=== PATIENT | female | born 1970 | race Caucasian/White ===

== ENCOUNTER 2018-06-08 21:07 | Emergency (ER) | payer MEDICAID ==
[2018-06-08 21:23] VITALS: BP 112/73
== END 2018-06-09 01:30 | disposition left against medical advice (07) ==
LOC: ER 21:07
DX: Z53.21 Procedure and treatment not carried out due to patient leaving prior to being seen by health care provider (principal)

== ENCOUNTER → 2018-06-09 | Outpatient (CLI) | payer MEDICAID ==
--- NOTE | 2018-06-09 13:41 | RADIOLOGY REPORT (SQ) ---
EXAM DESCRIPTION: RIBS RIGHT W/PA CHEST COMPLETED DATE/TIME: 06/09/2018 12:04 pm REASON FOR STUDY: PLEURODYNIA R07.81 PLEURODYNIA COMPARISON: 2014 TECHNIQUE: Frontal view of the chest and additional views of the right ribs acquired. NUMBER OF VIEWS: Three view. LIMITATIONS: None. FINDINGS: FRONTAL CXR: Wedge-shaped opacity arising from the right hilum extending peripherally. Le ft lung is clear. RIBS: No obvious rib pathology. No displaced fractures. OTHER: No other significant finding. IMPRESSION: Wedge-shaped opacity arising from the right hilum. Infection versus tumor. COMMENT: SITE OF TRAUMA/COMPLAINT MARKED/STAMP COMPLETED: Yes TECHNICAL DOCUMENTATION: JOB ID: [id number] [employer]- All Rights Reserved Reading location - IP/workstation name: [email or web address]
== END ==
LOC: OD 11:40
PROVIDERS: ATTEND Nurse Practitioner Family
DX: R07.81 Pleurodynia (principal)

== ENCOUNTER 2019-05-30 00:49 | Emergency (ER) | payer MEDICAID ==
[2019-05-30 01:33] LABS: ABSOLUTE EOSINOPHILS # (AUTO) 0.1 10^3/uL (0.0-0.6); ABSOLUTE LYMPHOCYTES (AUTO) 0.7 10^3/uL (0.5-4.7); ABSOLUTE MONOCYTES (AUTO) 0.5 10^3/uL (0.1-1.4); ABSOLUTE NEUT (AUTO) 10.4 10^3/uL (1.7-8.2); BASOPHILS % (AUTO) 0.2 % (0-2); EOSINOPHILS % (AUTO) 0.7 % (0-6); HEMATOCRIT 39.6 % (36.0-47.0); HEMOGLOBIN 13.3 g/dL (12.0-15.5); LYMPHOCYTES % (AUTO) 6.1 % (13-45); MEAN CORPUSCULAR HEMOGLOBIN 28.5 pg (27.0-33.4); MEAN CORPUSCULAR HGB CONC 33.6 g/dL (32.0-36.0); MEAN CORPUSCULAR VOLUME 85 fl (80-97); MONOCYTES % (AUTO) 4.3 % (3-13); PLATELET COUNT 184 10^3/uL (150-450); RED BLOOD COUNT 4.67 10^6/uL (3.72-5.28); RED CELL DISTRIBUTION WIDTH 15.7 % (11.5-14.0); SEGMENTED NEUTROPHILS % (AUTO) 88.7 % (42-78); TOTAL CELLS COUNTED % (AUTO) 100 %; WHITE BLOOD COUNT 11.7 10^3/uL (4.0-10.5)
[2019-05-30] MEDS ORDERED: ONDANSETRON HCL INJ/PF 4 MG/2 ML SDV IV ONE (02:03)
[2019-05-30 02:24] LABS: A TYPE INFLUENZA AG POSITIVE (NEGATIVE); B INFLUENZA AG POSITIVE (NEGATIVE)
[2019-05-30 02:31] LABS: ALBUMIN 3.8 g/dL (3.5-5.0); ALKALINE PHOSPHATASE 113 U/L (38-126); ANION GAP 8 (5-19); ASPARTATE AMINO TRANSFERASE 31 U/L (14-36); BILIRUBIN,DIRECT 0.4 mg/dL (0.0-0.4); BILIRUBIN,TOTAL 0.5 mg/dL (0.2-1.3); BLOOD UREA NITROGEN 20 mg/dL (7-20); CALCIUM 9.2 mg/dL (8.4-10.2); CARBON DIOXIDE 28 mmol/L (22-30); CHLORIDE 104 mmol/L (98-107); GLUCOSE 111 mg/dL (75-110); POTASSIUM 3.8 mmol/L (3.6-5.0); TOTAL PROTEIN 7.2 g/dL (6.3-8.2)
--- NOTE | 2019-05-30 03:40 | ER Document Report ---
ED General - General Chief Complaint: Nausea/Vomiting/Diarrhea Stated Complaint: VOMITING Time Seen by Provider: 05/30/19 03:39 Primary Care Provider: GINO FIGUEROA MD [Primary Care Provider] - Follow up as needed TRAVEL OUTSIDE OF THE [place] IN LAST 30 DAYS: No - Related Data Allergies/Adverse Reactions: aspirin [Aspirin] Adverse Reaction (Verified 08/08/14 22:06) ibuprofen Adverse Reaction (Verified 08/08/14 22:06) Past Medical History - Social History Smoking Status: Current Every Day Smoker Family History: Reviewed & Not Pertinent Patient has suicidal ideation: No Patient has homicidal ideation: No Musculoskeletal Medical History: Reports Hx Fibromyalgia Past Surgical History: Reports: Hx Cholecystectomy, Hx Gastric Bypass Surgery, Hx Orthopedic Surgery Physical Exam - Vital signs Vitals: Temp Pulse Resp BP Pulse Ox 98.0 F 95 20 130/78 H 98 05/30/19 00:57 05/30/19 00:57 05/30/19 00:57 05/30/19 00:57 05/30/19 00:57 Course - Vital Signs Vital signs: Temp Pulse Resp BP Pulse Ox 98.0 F 95 20 130/78 H 98 05/30/19 00:57 05/30/19 00:57 05/30/19 00:57 05/30/19 00:57 05/30/19 00:57 - Laboratory Result Diagrams: 05/30/19 01:10 05/30/19 01:10 Laboratory results interpreted by me: 05/30/19 05/30/19 01:10 01:10 WBC 11.7 H RDW 15.7 H Lymph % (Auto) 6.1 L Absolute Neuts (auto) 10.4 H Seg Neutrophils % 88.7 H Glucose 111 H Discharge - Discharge Referrals: GINO FIGUEROA MD [Primary Care Provider] - Follow up as needed
--- NOTE | 2019-05-30 03:47 | ER Document Report ---
ED General - General Chief Complaint: Nausea/Vomiting/Diarrhea Stated Complaint: VOMITING Time Seen by Provider: 05/30/19 03:39 Primary Care Provider: GINO FIGUEROA MD [Primary Care Provider] - Follow up as needed Notes: Patient is a 49-year-old female who presents to the emergency department with a chief complaint of nausea, vomiting, and diarrhea. Patient states that she also has some rhinorrhea. Patient has a history of gastric bypass surgery in 1998. She also has history of viral meningitis. Denies a headache, or any other symptoms. TRAVEL OUTSIDE OF THE [place] IN LAST 30 DAYS: No - Related Data Allergies/Adverse Reactions: aspirin [Aspirin] Adverse Reaction (Verified 08/08/14 22:06) ibuprofen Adverse Reaction (Verified 08/08/14 22:06) Past Medical History - Social History Smoking Status: Current Every Day Smoker Family History: Reviewed & Not Pertinent Patient has suicidal ideation: No Patient has homicidal ideation: No Musculoskeletal Medical History: Reports Hx Fibromyalgia Past Surgical History: Reports: Hx Cholecystectomy, Hx Gastric Bypass Surgery, Hx Orthopedic Surgery Review of Systems - Review of Systems Notes: REVIEW OF SYSTEMS: CONSTITUTIONAL : Denies recent illness. Denies recent unintentional weight loss. Denies fever, chills, or sweats. EENT: HPI. CARDIOVASCULAR: Denies chest pain. RESPIRATORY: Denies shortness of breath, cough, congestion, difficulty breathing, or wheezing. GASTROINTESTINAL: See HPI. GENITOURINARY: Denies difficulty urinating, burning, blood in urine, urgency or frequency. MUSCULOSKELETAL: Denies neck and back pain. Denies joint pain or swelling. SKIN: Denies rash, itchiness, or lesions HEMATOLOGIC : Denies easy bruising or bleeding. LYMPHATIC: Denies swollen, painful, enlarged glands. NEUROLOGICAL: Denies no numbness or tingling denies weakness. Denies headache. Denies altered mental status. Denies alteration in speech. PSYCHIATRIC: Denies stress, anxiety, alteration in sleep patterns, or dep ression. All other systems reviewed and negative. Physical Exam - Vital signs Vitals: Temp Pulse Resp BP Pulse Ox 98.0 F 95 20 130/78 H 98 05/30/19 00:57 05/30/19 00:57 05/30/19 00:57 05/30/19 00:57 05/30/19 00:57 - Notes Notes: PHYSICAL EXAMINATION: GENERAL: Appears chronically ill, thin, no acute distress. HEAD: Normocephalic, atraumatic. EYES: PERRL, conjunctiva normal, all extraocular movements intact, sclera nonicteric ENT: Moist mucous membranes. NECK: Supple, no noticeable swelling, redness, rash. Normal range of motion. LUNGS: Equal breath sounds bilaterally and clear to auscultation. No wheezes rales or rhonchi. CARDIOVASCULAR: S1-S2, regular rate, regular rhythm. Radial pulses 2+, normal. ABDOMEN: Normoactive bowel sounds. Soft, nontender, no guarding, no rebound tenderness, and no masses palpated. EXTREMITIES: Normal strength and range of motion, no pitting or edema. No cyanosis. NEUROLOGICAL: Moves all extremities upon command. Strength 5/5 in all extremities. PSYCH: Normal mood, normal affect. SKIN: Warm, dry. No rash, lesions, ulcerations noted. Normal skin turgor. Course - Re-evaluation Re-evalutation: 05/30/19 05:41 Hematology shows a mild leukocytosis with a white blood cell count of 11,700. Chemistries are unremarkable. Lipase is normal. Patient is positive for influenza A and influenza B. Awaiting urinalysis 05/30/19 05:56 Urinalysis is unremarkable. Patient will be sent home with Yuriy to help with her nausea and vomiting. Patient presses gratefulness for her care. Follow-up precautions were given. Verbal discharge instructions were given to the patient. They verbalized understanding. They are stable for discharge. - Vital Signs Vital signs: Temp Pulse Resp BP Pulse Ox 99.4 F 95 20 126/76 H 93 05/30/19 05:08 05/30/19 05:08 05/30/19 05:08 05/30/19 05:08 05/30/19 05:08 - Laboratory Result Diagrams: 05/30/19 01:10 05/30/19 01:10 Laboratory results interpreted by me: 05/30/19 05/30/19 05/30/19 01:10 01:10 05:00 WBC 11.7 H RDW 15.7 H Lymph % (Auto) 6.1 L Absolute Neuts (auto) 10.4 H Seg Neutrophils % 88.7 H Glucose 111 H Urine Ketones TRACE H Urine Blood SMALL H Urine Urobilinogen 4.0 H Discharge - Discharge Clinical Impression: Influenza A, Influenza B Nausea and vomiting Qualifiers: Vomiting type: unspecified Vomiting Intractability: non-intractable Qualified Code(s): R11.2 - Nausea with vomiting, unspecified Diarrhea Qualifiers: Diarrhea type: unspecified type Qualified Code(s): R19.7 - Diarrhea, unspecified Condition: Stable Disposition: HOME, SELF-CARE Additional Instructions: You have influenza. There is no treatment that is effective for this diagnosis other than supportive care at home. This includes drinking plenty of fluids, using Tylenol or ibuprofen as needed for fever and discomfort, and Zofran as needed for nausea and vomiting. Please follow closely with you primary care physician the next 1-2 days regarding this diagnosis. Return to the emergency department immediately if you began to have persistent vomiting prevents you from being able to keep fluids down for more than 12 hours, you pass out, you began having difficulty breathing, you become confused, or you have any other symptoms that are worrisome to you. Prescriptions: Ondansetron [Zofran Odt 4 mg Tablet] 1 - 2 tab PO Q4H PRN #15 tab.rapdis PRN Reason: For Nausea/Vomiting Referrals: [facility] [Provider Group] - Follow up in 3-5 days
[2019-05-30] MEDS ORDERED: NORMAL SALINE 1000 ML 1,000 ML IV ONE (04:02)
[2019-05-30] MEDS ORDERED: ACETAMINOPHEN 325 MG TABLET PO ONE (05:11)
[2019-05-30 05:26] VITALS: BP 126/76
[2019-05-30 05:47] LABS: APPEARANCE,URINE CLEAR; BILIRUBIN,URINE NEGATIVE (NEGATIVE); COLOR,URINE YELLOW; GLUCOSE, URINE NEGATIVE (NEGATIVE); KETONES,URINE TRACE mg/dL (NEGATIVE); LEUKOCYTE ESTERASE,URINE NEGATIVE (NEGATIVE); NITRITE,URINE NEGATIVE (NEGATIVE); PROTEIN,URINE NEGATIVE (NEGATIVE)
[2019-05-30] MEDS ORDERED: ONDANSETRON ODT 4 MG TAB (6 TAB/ER DISP) PO PRN (05:58)
== END 2019-05-30 06:30 | disposition home or self-care (01) ==
LOC: ER 00:49
DX: J11.1 Influenza due to unidentified influenza virus with other respiratory manifestations (principal); R11.2 Nausea with vomiting, unspecified; R19.7 Diarrhea, unspecified; Z88.6 Allergy status to analgesic agent; F17.200 Nicotine dependence, unspecified, uncomplicated; Z90.49 Acquired absence of other specified parts of digestive tract; Z98.84 Bariatric surgery status
CPT/HCPCS: 99284; 96361; 96374; 36415; 83690; 85025; 80053; 81001; 87804; J3490; J2405; J7030

== ENCOUNTER 2019-08-21 19:26 | Emergency (ER) | payer MEDICAID ==
--- NOTE | 2019-08-21 19:47 | ER Document Report ---
ED Medical Screen (RME) - General Chief Complaint: Finger Injury Stated Complaint: FINGER INJURY Primary Care Provider: GINO FIGUEROA MD [Primary Care Provider] - Follow up as needed Notes: Patient is a 49-year-old white female who reports to the ER today with a chief complaint of right finger and hand pain after a fall that occurred this morning around 8:30 AM. She states she tried to wait it out but she started to notice some bruising to the right index finger and palm of the right hand proximally. States her said you better get to the ER to get checked out. Denies any other pain, complaints or concerns at this time. No head or neck injury. No loss of consciousness. I have treated and performed a rapid initial assessment of this patient. A comprehensive ED assessment and evaluation of the patient, analysis of test r esults and completion of medical decision making process will be conducted by additional ED providers. PHYSICAL EXAMINATION: GENERAL: Well-appearing, well-nourished and in no acute distress. A&Ox4. Answers questions appropriately. TRAVEL OUTSIDE OF THE [place] IN LAST 30 DAYS: No - Related Data Allergies/Adverse Reactions: aspirin [Aspirin] Adverse Reaction (Verified 08/08/14 22:06) ibuprofen Adverse Reaction (Verified 08/08/14 22:06) Past Medical History Musculoskeltal Medical History: Reports Hx Fibromyalgia Past Surgical History: Reports: Hx Cholecystectomy, Hx Gastric Bypass Surgery, Hx Orthopedic Surgery Physical Exam - Vital signs Vitals: Temp Pulse Resp BP Pulse Ox 97.7 F 90 22 H 105/72 98 08/21/19 19:34 08/21/19 19:34 08/21/19 19:34 08/21/19 19:34 08/21/19 19:34 Course - Vital Signs Vital signs: Temp Pulse Resp BP Pulse Ox 97.7 F 90 22 H 105/72 98 08/21/19 19:34 08/21/19 19:34 08/21/19 19:34 08/21/19 19:34 08/21/19 19:34 Doctor's Discharge - Discharge Referrals: GINO FIGUEROA MD [Primary Care Provider] - Follow up as needed
--- NOTE | 2019-08-21 21:25 | RADIOLOGY REPORT (SQ) ---
EXAM DESCRIPTION: XR HAND 3 OR MORE VIEWS COMPLETED DATE/TME: 08/21/2019 19:46 CLINICAL HISTORY: 49 years ,Female fall trauma COMPARISON: None. TECHNIQUE: RIGHT hand, Three view FINDINGS: There is a fracture through the midshaft of the second proximal phalanx. This is nondisplaced and seen only in the frontal projection. Small amount of associated soft tissue swelling. No radiopaque foreign object noted. IMPRESSION: Nondisplaced hairline fracture of the midshaft of the second proximal phalanx
[2019-08-21] MEDS ORDERED: HYDROCODONE/ACETAMINOPHEN 5-325 MG (6 TAB/ER DISP) PO PRN (21:33)
--- NOTE | 2019-08-21 21:37 | ER Document Report ---
ED General - General Chief Complaint: Finger Injury Stated Complaint: FINGER INJURY Primary Care Provider: GINO FIGUEROA MD [Primary Care Provider] - Follow up as needed Notes: Patient is a 49-year-old white female who reports to the ER today with a chief complaint of right finger and hand pain after a fall that occurred this morning around 8:30 AM. She states she tried to wait it out but she started to notice some bruising to the right index finger and palm of the right hand proximally. States her said you better get to the ER to get checked out. Patient reports some pain from the proximal second phalanx that radiates up and down the finger and hand. Worse with any movement, slightly palliated by immobilization. No numbness tingling or weakness. Denies any other pain, complaints or concerns at this time. No head or neck injury. No loss of consciousness. TRAVEL OUTSIDE OF THE [place] IN LAST 30 DAYS: No - Related Data Allergies/Adverse Reactions: aspirin [Aspirin] Adverse Reaction (Verified 08/08/14 22:06) ibuprofen Adverse Reaction (Verified 08/08/14 22:06) Past Medical History - Social History Smoking Status: Current Every Day Smoker Family History: Reviewed & Not Pertinent Patient has suicidal ideation: No Patient has homicidal ideation: No Musculoskeletal Medical History: Reports Hx Fibromyalgia Past Surgical History: Reports: Hx Cholecystectomy, Hx Gastric Bypass Surgery, Hx Orthopedic Surgery Review of Systems - Review of Systems Musculoskeletal: Joint pain -: Yes All other systems reviewed and negative Physical Exam - Vital signs Vitals: Temp Pulse Resp BP Pulse Ox 97.7 F 90 22 H 105/72 98 08/21/19 19:34 08/21/19 19:34 08/21/19 19:34 08/21/19 19:34 08/21/19 19:34 - General General appearance: Appears well, Alert - Respiratory Respiratory status: No respiratory distress Chest status: Nontender Breath sounds: Normal Chest palpation: Normal - Cardiovascular Rhythm: Regular Heart sounds: Normal auscultation - Extremities Hand: Other - Diffuse tenderness to palpation of the right index finger. There is a small area of ecchymosis over the proximal phalanx of the second digit of the right hand dorsally. Good capillary refill distally in the right index finger. Decreased range of motion secondary to pain. No obvious deformities. - Neurological Neuro grossly intact: Yes Cognition: Normal Orientation: AAOx4 Rosa Coma Scale Eye Opening: Spontaneous Rosa Coma Scale Verbal: Oriented Rosa Coma Scale Motor: Obeys Commands Rosa Coma Scale Total: 15 Speech: Normal Motor strength normal: LUE, RUE, LLE, RLE Sensory: Normal - Psychological Associated symptoms: Normal affect, Normal mood - Skin Skin Temperature: Warm Skin Moisture: Dry Skin Color: Normal Course - Re-evaluation Re-evalutation: 08/21/19 21:36 Patient given a short course of pain medications given the fracture found on x- ray by radiologist. Finger was placed in a finger immobilizer splint by nursing staff, neurovascular intact status post as evaluated by me. Counseled patient regarding supportive care measures. Discussed with her the importance of outpatient follow-up and advised that she return here or any ER immediately with any new, persistent or worsening symptoms. She verbalized understood and agreed. - Vital Signs Vital signs: Temp Pulse Resp BP Pulse Ox 97.7 F 90 22 H 105/72 98 08/21/19 19:34 08/21/19 19:34 08/21/19 19:34 08/21/19 19:34 08/21/19 19:34 Discharge - Discharge Clinical Impression: Proximal phalanx fracture of finger Qualifiers: Encounter type: initial encounter Finger: index finger Fracture type: closed Fracture alignment: nondisplaced Laterality: right Qualified Code(s): S62.640A - Nondisplaced fracture of proximal phalanx of right index finger, initial encounter for closed fracture Condition: Stable Disposition: HOME, SELF-CARE Instructions: Fractured Finger ([facility]) Additional Instructions: Follow-up with your regular doctor in 2 to 3 days for reevaluation. Return here or any ER immediately with any new, persistent or worsening symptoms. Referrals: GINO FIGUEROA MD [Primary Care Provider] - Follow up as needed
[2019-08-21 22:03] VITALS: BP 119/82
== END 2019-08-21 22:03 | disposition home or self-care (01) ==
LOC: ER 19:26
DX: S62.640A Nondisplaced fracture of proximal phalanx of right index finger, initial encounter for closed fracture (principal); W19.XXXA Unspecified fall, initial encounter; F17.200 Nicotine dependence, unspecified, uncomplicated; Z88.6 Allergy status to analgesic agent; Z90.49 Acquired absence of other specified parts of digestive tract
CPT/HCPCS: 99283